=== PATIENT | male | born 1995 | race Caucasian/White ===

== ENCOUNTER 2021-03-04 18:41 | Emergency (ER) | payer MEDICAID, OTHER ==
[~2021-03-04] VITALS: Ht 185.4 cm; Wt 81.6 kg
[~2021-03-04 18:41] MED LIST: ALBU0.0939 IH
[2021-03-04 19:02] VITALS: BP 132/69
--- NOTE | 2021-03-04 19:13 | NUR ---
md white assessing pt in [place]
[2021-03-04] MEDS ORDERED: cefTRIAXone 1,000 MG in LIDOCAINE MPF 1% 2.1 ML IM ONE (19:20)
[2021-03-04] MEDS ORDERED: CEPH-588 PO (19:22)
[2021-03-04] MEDS ORDERED: SULF-59 PO (19:22)
[2021-03-04] MEDS ORDERED: IBUP-2213 PO (19:22)
[2021-03-04] MEDS ORDERED: cefTRIAXone 1,000 MG VIAL ONE (19:59)
[2021-03-04] MEDS ORDERED: LIDOCAINE MPF 1% 5 ML ONE (19:59)
[2021-03-04 20:40] VITALS: BP 119/72
--- NOTE | 2021-03-04 20:40 | NUR ---
Patient discharged with v/s stable. Written and verbal after care instructions given and explained. Patient alert, oriented and verbalized understanding of instructions. Ambulatory with steady gait. All questions addressed prior to discharge. ID band removed. Patient advised to follow up with PMD. Rx of keflex, bactrim, ibuprofen given. Patient educated on indication of medication including possible reaction and side effects. Opportunity to ask questions provided and answered.
== END 2021-03-04 20:40 | disposition home or self-care (01) ==
LOC: MED 18:41
DX: L03.114 Cellulitis of left upper limb (principal); I89.1 Lymphangitis; F17.210 Nicotine dependence, cigarettes, uncomplicated; J45.909 Unspecified asthma, uncomplicated; F14.90 Cocaine use, unspecified, uncomplicated; F12.90 Cannabis use, unspecified, uncomplicated; F15.90 Other stimulant use, unspecified, uncomplicated; Z79.899 Other long term (current) drug therapy
CPT/HCPCS: 96372; 99283; J0696; J2001

== ENCOUNTER 2021-08-27 17:28 | Emergency (ER) | payer MEDICAID, OTHER ==
[~2021-08-27] VITALS: Ht 185.4 cm; Wt 77.1 kg
[~2021-08-27 17:28] MED LIST changes: +CEPH-588 PO; +IBUP-2213 PO; +SULF-59 PO
[2021-08-27 17:36] VITALS: BP 113/67
--- NOTE | 2021-08-27 17:45 | NUR ---
WALKED IN C/O ABSCESS TO RIGHT CHIN NOTICED 3 DAYS AGO. WAS SEEN AT [facility] AND LEFT AFTER REFUSING I&D. DENIES FEVER, AAOX4, AMBULATORY, VITALS STABLE.
[2021-08-27 17:47] VITALS: BP 118/68
[2021-08-27] MEDS ORDERED: LIDOCAINE MPF 1% 10 MG/ML VIAL INJ ONE (18:15)
[2021-08-27] MEDS ORDERED: IBUPROFEN 600 MG TAB PO ONE (18:15)
--- NOTE | 2021-08-27 18:21 | NUR ---
SUTURE BEING PERFORMED BY PA AT BEDSIDE. LIDO ADMINISTERED BY PA
[2021-08-27] MEDS ORDERED: IBUP-2213 PO (18:55)
== END 2021-08-27 18:50 | disposition home or self-care (01) ==
LOC: MED 17:28
DX: L02.01 Cutaneous abscess of face (principal); J45.909 Unspecified asthma, uncomplicated; F12.90 Cannabis use, unspecified, uncomplicated; Z79.1 Long term (current) use of non-steroidal anti-inflammatories (NSAID); Z79.2 Long term (current) use of antibiotics; Z79.899 Other long term (current) drug therapy
CPT/HCPCS: 10060; 99284; J2001

== ENCOUNTER 2023-08-31 17:11 | Emergency (ER) | payer MEDICAID, OTHER ==
[~2023-08-31] VITALS: Ht 185.4 cm; Wt 68.0 kg
[2023-08-31 17:26] VITALS: BP 121/100; PULSE 116; RESP 19; TEMP 98.7; O2SAT 97
== END 2023-08-31 18:11 | disposition left against medical advice (07) ==
LOC: MED 17:11
DX: M79.89 Other specified soft tissue disorders (principal); Z53.20 Procedure and treatment not carried out because of patient's decision for unspecified reasons